=== PATIENT | male | born 1960 | race Caucasian/White ===

== ENCOUNTER → 2019-01-28 | Outpatient (CLI) | payer BC | LOC: FIMAGING 18:02 | PROVIDERS: ATTEND Neurological Surgery | DX: M51.35 Other intervertebral disc degeneration, thoracolumbar region (principal); M51.36 Other intervertebral disc degeneration, lumbar region; M51.37 Other intervertebral disc degeneration, lumbosacral region; M79.606 Pain in leg, unspecified ==

== ENCOUNTER → 2019-01-30 | Outpatient (CLI) | payer BC | LOC: FIMAGING 09:27 | PROVIDERS: ATTEND Neurological Surgery | DX: I70.213 Atherosclerosis of native arteries of extremities with intermittent claudication, bilateral legs (principal) ==

== ENCOUNTER 2019-02-16 09:21 | Observation (INO) | payer BC ==
[2019-02-16] MEDS ORDERED: NS 1,000 ML IV ONE (09:24)
[2019-02-16] MEDS ORDERED: DIAZEPAM 5 MG TAB PO ONE (09:24)
[2019-02-16] MEDS ORDERED: diphenhydrAMINE 25 MG CAP PO ONE (09:24)
[2019-02-16] MEDS ORDERED: ASPIRIN EC 325 MG TAB PO ONE (09:24)
[2019-02-16] MEDS ORDERED: FAMOTIDINE 20 MG TAB PO ONE (09:24)
[2019-02-16] MEDS ORDERED: LIDOCAINE 1% 300 MG/30 ML SDV ONE (09:45)
[2019-02-16] MEDS ORDERED: fentaNYL 100 MCG/2 ML INJ ONE ×2 (09:46→12:00)
[2019-02-16] MEDS ORDERED: MIDAZOLAM 2 MG/2 ML VIAL ONE ×4 (09:46→12:17)
[2019-02-16] MEDS ORDERED: IOPAMIDOL (ISOVUE-300) 100 ML BTL ONE ×3 (09:47→12:26)
[2019-02-16 09:51] LABS: PLATELET COUNT 189 10^3/uL (150-400)
[2019-02-16 09:59] LABS: INR 0.9 (0.83-1.16); PROTIME(PATIENT) 11.8 SEC (12.0-15.0)
[2019-02-16] MEDS ORDERED: CLOPIDOGREL BISULFATE 75 MG TAB PO ONE (11:00)
--- NOTE | 2019-02-16 11:09 | PDHPUP ---
History & Physical Update H&P update statement: This history and physical update is based on an assessment of the patient which was completed after admission or registration (within 24 hours), but prior to the surgery/procedure. H&P update: H&P reviewed & patient examined, no change in patient's condition since H&P completed
--- NOTE | 2019-02-16 11:09 | PDPROPOC ---
Sedation Plan of Care Sedation Plan of Care: mental status noted, patient educated of risks, benefits , alternatives, patient can tolerate sedation ASA Classification: ASA 2 Planned drugs: fentanyl, midazolam Mallampati Score: Class 2 Mallampati Reference Image: Patient passed 3-3-2 rule?: Yes
[2019-02-16] MEDS ORDERED: HEPARIN 10,000 UNIT/10 ML MDV (1,000 UNIT/ML) ONE (11:37)
[2019-02-16] MEDS ORDERED: DIVALPROEX NA 125 MG TAB PO PRN (13:01)
[2019-02-16] MEDS ORDERED: ALPRAZolam 1 MG TAB PO PRN (13:01)
[2019-02-16] MEDS ORDERED: NITROGLYCERIN 0.4 MG BTL SL PRN (13:40)
[2019-02-16] MEDS ORDERED: ATROPINE SULFATE 1 MG/10 ML SYR IVP PRN (13:40)
[2019-02-16] MEDS ORDERED: ONDANSETRON 4 MG/2 ML VIAL IVP PRN (13:40)
[2019-02-16] MEDS ORDERED: OXYCODONE/APAP 5/325 TAB PO PRN (13:40)
[2019-02-16] MEDS: HYDROCODONE/APAP 5/325 TAB PO PRN ×2 (19:27→22:40)
[2019-02-16] MEDS: METOPROLOL TARTRATE 25 MG TAB PO SCH (19:42)
[2019-02-16] MEDS: VARENICLINE TARTRATE 0.5 MG TAB PO SCH (19:44)
[2019-02-17 04:07] LABS: PLATELET COUNT 168 10^3/uL (150-400)
--- NOTE | 2019-02-17 04:36 | CPIP ---
[f rep st] INVASIVE CARDIAC PROCEDURE DATE OF PROCEDURE: 02/16/2019 REASON FOR PROCEDURE: Claudication. PROCEDURE: 1. Nonselective right groin sheathogram. 2. Runoff of right lower extremity. 3. Abdominal angiogram. 4. Catheter placed in the left common femoral artery. 5. Runoff of the left lower extremity. 6. Successful catheter placement in the left popliteal artery with angiography performed. 7. BARREL DRILLER and stenting of left mid SFA utilizing [employer] 6.0 x 16 mm stent. 8. PTCA and stenting of left common iliac artery utilizing [employer] 9.0 x 25 mm balloon exp andable stent. BRIEF HISTORY: This is a 58-year-old male with a history of severe lower extremity PAD with severe c laudication despite exercise therapy. The patient was consented for invasive angiography. DESCRIPTION OF PROCEDURE: After informed consent, the patient was brought to [facility] where the right groin was prepped and draped in sterile fashion. Using lidocaine, a short 6-Syrian sheath in the right common femoral artery verified angiographically. Runoff of the right lower extr emity showed patent right common femoral artery. The profunda artery had significant narrowing at th e ostial takeoff, which was a bifurcating vessel. The SFA appeared 100% occluded with no significant ostial portion of the vessel. The SFA reconstituted via profunda collaterals in the mid thigh. The re appeared to be intact 3 vessel runoff to the foot with intact popliteal artery. [place] Flush C atheter was then advanced to the descending aorta. Abdominal aortogram was still patent d escending aorta. Patent right common iliac artery. Patent right external iliac artery. Patent righ t internal iliac artery. Left common iliac artery had what appeared to be a tubular 70% stenosis pro ximally. The left external iliac artery appeared to be widely patent. Left internal iliac artery glover d 70% proximal disease. [place] Flush Catheter was advanced to the left common femoral artery. __ the left lower extremity showed patent left common femoral artery, patent left profunda chuy ry, patent left SFA. Mid distal SFA had 100% occlusion, was reconstituted via [id number]-rvha collatera ls. Popliteal artery appeared to be patent and there appeared to be 3-vessel runoff to the foot. Interventional report: At this time, the patient was 10,000 heparin IV as well as adminis tered 600 of . A long and stiff Glidewire was advanced down the SFA. The [place] Flush Catheter was removed. The short 6-Syrian sheath removed. A 7-Syrian 45-cm sheath placed in the left contralateral common femoral artery and verified angiographically. An angled glide catheter was adv anced over the wire and attempts were made with this to probe the lesion. The wire was successful in crossing the lesion and verified with the [place] catheter as being true vessel. At this time, the Gl idewire was removed. The 0.035 wire was placed in the popliteal artery. The [place] catheter was [place] rufus. Balloon BARREL DRILLER commenced with a 4 x 40 balloon across the lesion in the SFA at [address] this was performed, angiographic images were obtained which showed improved patency with moderate dissection plane. We then proceeded with stenting this vessel. The 6.0 x 60 mm self-expanding sten t was deployed successfully and then deployed with a 6.0 x 40 mm balloon at 8 atmospheres. After thi s was performed, angiographic exam showed excellent patency of the stented area with no dissection or perforation. At this time, our attention was turned to the left common iliac artery. A pullback ac ross the iliac artery revealed a pressure gradient of at least 60 mmHg, indicating the severity of th e stenosis. We proceeded with primary stenting of this vessel with a 9.0 x 25 mm balloon expandable stent. This was deployed successfully at 10 atmospheres. After deployment, angiogram was obtained w hich showed excellent patency of the stented area with no evidence of dissection or perforation. The balloon and wire were removed. The sheath was removed and wound closed with an 8-Syrian Angio-Seal. The patient tolerated the procedure with no complications. IMPRESSION: Successful stenting of left mid distal SFA and left common iliac artery with a self-expa nding stent in the SFA and balloon expandable stent in the common iliac artery for severe lower extre mity claudication. PLAN: The patient will have 3 hours of bed rest, will be discharged either later today if clinically stable or kept as observation overnight. The patient has 100% occluded right SFA, which can be addr essed as an elective outpatient procedure in a future date. /[id number]/MODL
--- NOTE | 2019-02-17 07:58 | GDS ---
[f rep st] DISCHARGE SUMMARY DISCHARGE DIAGNOSIS: Peripheral artery disease. HOSPITAL COURSE: Briefly, this is a 58-year-old male with a history of severe lower extremity claudi cation despite exercise therapy and medical therapy. The patient underwent an angiogram on 9, which showed 100% occluded right SFA with reconstitution in the mid thigh. The patient also had h igh-grade left common iliac stenosis of 70% and 100% occluded distal left SFA. The patient had excel lent 3-vessel runoff bilaterally with intact popliteal arteries. The patient underwent successful PT CA and stenting of the left SFA with single subluxating stent and a balloon expandable stent to the l eft common iliac artery. Post procedure, patient has done very well, ambulating in the halls without problems. No leg pain. Interestingly enough, the patient has actually felt less pain in his right leg as well this morning. He will be discharged home with his home medications and including Plavix 75 daily. He will follow up in the office in 1 week's time. /[id number]/MODL
[2019-02-17 08:21] VITALS: BP 162/92
[2019-02-17] MEDS: METOPROLOL TARTRATE 25 MG TAB PO SCH (08:31)
[2019-02-17] MEDS: VARENICLINE TARTRATE 0.5 MG TAB PO SCH (08:32)
[2019-02-17] MEDS ORDERED: CLOPIDOGREL BISULFATE 75 MG TAB PO SCH (09:00)
[2019-02-17] MEDS ORDERED: MULTIVITAMINS 1 EACH TAB PO SCH (09:00)
[2019-02-17] MEDS ORDERED: ASPIRIN 81 MG CHEWABLE TAB PO SCH (09:00)
== END 2019-02-17 10:46 | disposition home or self-care (01) ==
LOC: FCATH 09:21 → F2W 13:06
PROVIDERS: ADMIT Internal Medicine Cardiovascular Disease; ATTEND Internal Medicine Cardiovascular Disease
PROC: 047L3DZ Dilation of Left Femoral Artery with Intraluminal Device, Percutaneous Approach (ICD-10-PCS; principal; 2019-02-16)
PROC: 047D3DZ Dilation of Left Common Iliac Artery with Intraluminal Device, Percutaneous Approach (ICD-10-PCS; principal; 2019-02-16)
PROC: B41D1ZZ Fluoroscopy of Aorta and Bilateral Lower Extremity Arteries using Low Osmolar Contrast (ICD-10-PCS; principal; 2019-02-16)
DX: I70.213 Atherosclerosis of native arteries of extremities with intermittent claudication, bilateral legs (principal); I70.92 Chronic total occlusion of artery of the extremities; I10 Essential (primary) hypertension; F17.210 Nicotine dependence, cigarettes, uncomplicated
CPT/HCPCS: 37221; 37226; 75710; C1725; C1769; G0378; C1760; C1876; J1644; J2250; J3010; Q9967

== ENCOUNTER 2019-04-07 06:33 | Observation (INO) | payer BC | END 2019-04-08 11:54 | disposition home or self-care (01) | LOC: FCATH 06:33 → F2W 10:46 ==